=== PATIENT | female | born 1995 | race Caucasian/White ===

== ENCOUNTER 2017-09-30 13:16 | Emergency (ER) | payer BC ==
[~2017-09-30] VITALS: Ht 165.1 cm; Wt 56.0 kg
[2017-09-30 13:22] VITALS: TEMP 36.3; Ht 165.1 cm; Wt 56.0 kg
[2017-09-30] MEDS ORDERED: BCPILLS PO (13:57)
--- NOTE | 2017-09-30 13:59 | EMERGENCY ROOM VISIT NOTE ---
History First contact with patient: 13:23 Chief Complaint: HEAD INJURY (MINOR) Stated Complaint: HEADACHE,DIZZINESS, NAUSEA, TROUBLE CONCENTRATING, History of Present Illness The patient is a 22 year old female who presents to the Emergency Room via private vehicle with complaints of "headache, dizziness, nausea, trouble concentrating". The patient states that of last week she was descending a flight of steps, when she accidentally struck the left front of her head on an angle ceiling. She states that there was no loss of consciousness. She states that she could not read for greater than 30 minutes at a time without experiencing worsening of her symptoms. She states that after 1 hour of school she felt nauseated. She has been sleeping more than usual, and her appetite is decreased. Headache has been off and on but she notes that that is not her worst symptom, rather that when she tries to concentrate she feels nauseous. There is also dizziness. She has difficulty in focusing. She also has been dizzy. She has a concussion diagnosis from 1 year ago and notes this feels similar. Review of Systems A complete 6-point Review of Systems was discussed with the patient, with pertinent positives and negatives listed in the History of Present Illness. All remaining Review of Systems questions can be considered negative unless otherwise specified. Past Medical/Surgical History Concussion Family History No pertinent Social History Patient is a [place] [employer] student and lives locally. Current/Historical Medications Scheduled Control Pills ( Control Pills), 1 TAB PO DAILY Physical Exam Vital Signs Date Time Temp Pulse Resp B/P (MAP) Pulse Ox O2 Delivery O2 Flow Rate FiO2 09/30/17 14:12 84 16 120/74 95 09/30/17 13:22 36.3 117 16 137/80 99 Physical Exam VITAL SIGNS - Vital signs and nursing notes were reviewed. Stable. GENERAL -22-year-old female appearing her stated age. Communicates well with provider and answers questions appropriately. SKIN - Gross examination of the entire body surface demonstrates no lacerations to the body surface. HEAD - Normocephalic, Atraumatic. No Brar's Sign or Raccoon's Eyes. No depressed skull fractures palpable. EYES - PERRL with EOMI bilaterally. Without subconjunctival hemorrhage. EARS - No deformities of external structures noted on gross examination bilaterally. No hemotympanum present. No tympanic perforation noted. Handle of malleus, umbo, cone of light, pars tensa/flaccid all easily visualized. NOSE - Midline and without cyanosis. No epistaxis or clear watery discharge noted. Septum midline without deviation. No overlying ecchymosis noted. MOUTH/OROPHARYNX - Without perioral cyanosis. Tongue midline with equal elevation of palate bilaterally. No blood noted in the oropharynx. No tonsillar hypertrophy, erythema, or exudates noted. No dental fractures noted. NECK - no tenderness to palpation over the cervical spinous processes. EXTREMITIES - No gross deformities noted of the extremities. +5/5 strength noted in UE/LE bilaterally. NEUROLOGIC - Cranial nerves II through XII grossly intact. Sensory intact to light touch throughout. P PSYCH - A&Ox3 and cooperates fully with examiner. Pt is very pleasant and interacts well with examiner. Medical Decision & Procedures Medical Decision Patient was seen and evaluated as above. She presents to us today with symptoms consistent with that of a concussion. Benefits versus risk of obtaining CT scan of the patient's head was discussed, and the decision was made to refrain after a thorough discussion was had. The patient has had no loss of consciousness, her headache is very minimal, there has been no vomiting , and her mental status is appropriate. Her main reason for presentation is her decreased ability to concentrate with school work. She notes that she is attending this major, and reading is very important. She states that she tried to follow with [facility] however they do not accept her insurance, and when she called the family doctor's office at the building out front of the hospital here, they informed her that with her head injury today recommend she go to the emergency department for evaluation. Upon my examination concussion diagnosis was made, and I do recommend follow-up with her family doctor if persistent of her symptoms so that when she may see a specialist for concussions. I did provide her a school note so that way she could have accommodations regarding the diagnosis. She was educated upon management, educated upon worrisome symptoms in which to return, had questions answered prior to discharge, and was discharged home in good condition. In the evaluation and treatment of this patient, the following differential diagnoses were considered: Concussion, Contrecoup Injury, Brain Tumor, Depression, Encephalitis, Hypothyroidism, Meningitis, CVA, TIA, Migraine, Cluster Headache, Intracranial Abnormality, Intracranial Hemorrhage, Subdural Hematoma, Subarachnoid Hemorrhage, Hydrocephalus. Impression Primary Impression: Closed head injury Additional Impression: Concussion Departure Information Dispostion Home / Self-Care Condition GOOD Patient Instructions ED [facility] Additional Instructions You have been treated in the Emergency Department for a Closed Head Injury. For pain control, you can use the following [id number] medicines: - Regular strength (325mg/tab) Tylenol (acetaminophen) 2 tabs every 4-6 hours as needed. Do not exceed 12 tablets in a 24 hour period. Avoid taking more than 3 grams (3000 mg) of Tylenol per day. This includes any other sources of acetaminophen you may take on a regular basis. - Regular strength (200 mg/tab) Advil (ibuprofen) 1-2 tabs every 4-6 hours as needed. Do not exceed a dose of 3200 mg per day. You should relax in a quiet, dark place for the rest of the day. Avoid any possible triggers including: cigarette smoke, caffeine, nicotine, chocolate, wine, beer, loud noises or music, or bright lights. You should schedule a follow-up appointment in 2-3 days with your Primary Care Provider or established Neurologist for further evaluation and treatment of your Headache. Return to the Emergency Department if your current symptoms worsen despite treatment course outlined above, or if you develop any of the following symptoms : intractable pain despite aforementioned treatment course, visual disturbances , loss of vision, unilateral weakness or facial drooping, slurring of speech, loss of coordination, or loss of consciousness. Problem Qualifiers
[2017-09-30 14:12] VITALS: BP 120/74; PULSE 84; O2SAT 95
== END 2017-09-30 14:10 | disposition home or self-care (01) ==
LOC: C.EDB 13:19 → C.EDD 14:10
DX: S06.0X0A Concussion without loss of consciousness, initial encounter (principal); W10.9XXA Fall (on) (from) unspecified stairs and steps, initial encounter; W22.8XXA Striking against or struck by other objects, initial encounter; Z79.3 Long term (current) use of hormonal contraceptives